=== PATIENT | male | born 1960 | race Caucasian/White ===

== ENCOUNTER 2022-03-07 09:51 | Outpatient (CLI) | payer BC, SELFPAY ==
[2022-03-07 13:51] LABS: Basophils Absolute Auto 0.06 K/uL (0.00-0.30); Basophils Percent Auto 0.7 % (0.0-3.0); Eosinophils Absolute Auto 0.12 K/uL (0.00-0.50); Eosinophils Percent Auto 1.4 % (0.0-7.0); Hematocrit 47.2 % (37.0-53.0); Hemoglobin* 15.8 gm/dL (13.5-17.5); Immature Granulocytes Abs Auto 0.02 K/uL (0.00-0.30); Lymphocytes Absolute Auto 2.71 K/uL (0.90-2.90); Lymphocytes Percent Auto 31.9 % (20-44); Mean Corpuscular HGB Conc 34 gm/dL (32-36); Mean Corpuscular Hemoglobin 31 pg (26-34); Mean Corpuscular Volume 93 fL (80-100); Monocytes Percent Auto 12.2 % (0.0-11.0); Neutrophils Absolute Auto 4.55 K/uL (1.7-7.0); Neutrophils Percent Auto 53.6 % (42.0-72.0); Platelet Count* 235 K/uL (140-440); Red Blood Count 5.08 m/uL (4.30-5.90)
[2022-03-07 14:00] LABS: Slide Review Reflex No
[2022-03-07 14:32] LABS: Chloride* 100 mmol/L (96-114); Potassium* 4.3 mmol/L (3.6-5.1); Sodium* 135 mmol/L (135-149)
[2022-03-07 14:34] LABS: Alanine Aminotransferase* 68 U/L (4-50); Carbon Dioxide* 29 mmol/L (20-32); Cholesterol* 158 mg/dL (90-199); Creatinine* 0.9 mg/dL (0.5-1.5); Estimated Glomerular Filt Rate 97 ml/min
[2022-03-07 14:35] LABS: Blood Urea Nitrogen* 18 mg/dL (7-30); Calcium* 9.5 mg/dL (8.4-10.6); Glucose* 113 mg/dL (60-115); HDL Cholesterol* 48 mg/dL (>=40); LDL Cholesterol Calculated 93 mg/dL (<100); Triglycerides* 87 mg/dL (40-149)
[2022-03-07 14:58] LABS: PSA Screen* 0.63 ng/mL (0.10-4.00)
== END 2022-03-07 09:52 | disposition home or self-care (01) ==
PROVIDERS: PCP Family Medicine; Visit Provider Family Medicine
DX: I10 Essential (primary) hypertension (principal); E78.5 Hyperlipidemia, unspecified; E87.6 Hypokalemia; G47.00 Insomnia, unspecified; Z12.5 Encounter for screening for malignant neoplasm of prostate
CPT/HCPCS: 80048; 80061; 84153; 84460; 85025

== ENCOUNTER 2023-03-11 10:03 | Outpatient (CLI) | payer BC, SELFPAY ==
--- OUTSIDE RECORDS SUMMARY | 2023-03-11 10:06 | XMS_ITS | Continuity of Care Document ---
Author Name Unknown Organization [facility] Address [address] [place] [address] Phone Care Team Providers Care Staff Radiographer Name Role Phone Giovany Anderson MD Unavailable Unavailable Allergies, Adverse Reactions, Alerts Substance Reaction Status Criticality No Known Allergies Active No Inform ation Medications Medication Instructions Dosage Effective Dates (start - stop) Status Comments prednisone 5 mg tablet see below for titration directions - Active Take 4 tablets daily PO X 3 days then take 3 tablets daily X 3 days then take 2 tablets daily X 3 days then take 1 tablet daily X 3 days ASPIRIN (unknown strength) Not Available - Active ATENOLOL (unknown strength) Not Available - Active NABUMETONE (unknown strength) Not Available - Active POTASSIUM CHLORIDE (unknown strength) Not Available - Active SIMVASTATIN (unknown strength) Not Available - Active ZOLPIDEM TARTRATE (unknown strength) Not Available - Active Procedures Procedure Date Office/Outpatient Visit,[facility], [facility] 2020 Advance Directives Directive Yes / No Effective Date File Name No Information Encounters Encounter Description Practice Location Reason(s) For Visit Diagnoses Date Provider Providers Copied on Encounter [facility], [address], [place], [id number], [place] tel:[phone] [facility] No Information Monica Phillips [facility], [address] [place] [address] [address], [place], [id number] , [place]. tel:[phone] Office/Outpat ient Visit, [facility], [address], [place], [id number], [place] tel:[phone] [facility] Spinal stenosis, lumbar region with neurogenic claudication 1 Jaden Carranza. [address], [facility] [place], [id number] , [place]. tel:[phone] Referring Provider: Charlie Hagan, [facility] [address] [place], [address]. tel:[phone] Family History Family Member Type Diagnosis Age At Onset No Information Payers Payer name Insurance type Covered green party ID Cristiano stacy(s) [facility] [id number] [facility] [id number] Social History Type Description Quantity Date Captured Comments Sex Male Smoking Status No Information Chief Complaint And Reason For Visit No Information Reason For Referral Reason For Referral No Information History Of Present Illness Encounter Date Complaint History Of Prese nt Illness No Information Functional Status Date Functional Assessmen t No Information Instructions Date Instruction Additional Infor mation No Information Assessments Type Assessment Date No Information Patient Care Teams Name Effective Dates (start - stop) Status Members No Information
== END 2023-03-11 10:04 | disposition home or self-care (01) ==
PROVIDERS: PCP Family Medicine; Visit Provider Family Medicine
DX: I10 Essential (primary) hypertension (principal); E78.2 Mixed hyperlipidemia; Z12.5 Encounter for screening for malignant neoplasm of prostate; T63.461A Toxic effect of venom of wasps, accidental (unintentional), initial encounter
CPT/HCPCS: 80048; 80061; 84153; 84460; 86003

== ENCOUNTER 2023-10-01 09:41 | Outpatient (CLI) | payer OTHER, SELFPAY ==
--- OUTSIDE RECORDS SUMMARY | 2023-10-01 09:43 | XMS_ITS | Continuity of Care Document ---
Author Name Unknown Organization [facility] Address [address] [place] [address] Phone Care Team Providers Care Tank House Operator Helper Name Role Phone Giovany Anderson MD Unavailable [...] take 1 tablet daily X 3 days ZOLPIDEM TARTRATE (unknown strength) Not Available - Active SIMVASTATIN (unknown strength) Not Available - Active POTASSIUM CHLORIDE (unknown strength) Not Available - Active NABUMETONE (unknown strength) Not Available - Active ATENOLOL (unknown strength) Not Available - Active ASPIRIN (unknown strength) Not Available - Active Procedures Procedure Date Office/Outpatient Visit,[facility], [facility] 2020 Advance Directives Directive Yes / No Effective Date File Name No Information Encounters Encounter Description Practice Location Reason(s) For Visit Diagnoses Date Provider Providers Copied on Encounter [facility], [address], [place], [id number], [place] tel:[phone] [facility] No Information Monica Phillips [facility], [address] [place] [address] [address], [place], [id number] , [place]. tel:[phone] Office/Outpat ient Visit, [facility], [address], [place], [id number], [place] tel:[phone] [facility] [place] Spinal stenosis, lumbar region with neurogenic claudication 1 Jaden Carranza. [address], [facility] [place], [id number] , [place]. tel:[phone] Referring Provider: Charlie Hagan, [facility] [address] [place], [address]. tel:[phone] Family History Family Member Type Diagnosis Age At Onset No Information Payers Payer name Insurance type Covered libertarian ID Cristiano stacy(s) [facility] [id number] [facility] [id number] Social History Type Description Quantity Date Captured [...]
== END 2023-10-01 09:42 | disposition home or self-care (01) ==
PROVIDERS: PCP Family Medicine; Visit Provider Family Medicine
DX: I10 Essential (primary) hypertension (principal); E78.2 Mixed hyperlipidemia; Z79.899 Other long term (current) drug therapy
CPT/HCPCS: 80048; 80076; 83690

== ENCOUNTER 2023-10-09 07:32 | Outpatient (CLI) | payer OTHER, SELFPAY ==
--- OUTSIDE RECORDS SUMMARY | 2023-10-09 07:34 | XMS_ITS | Continuity of Care Document ---
Author Name Unknown Organization [facility] Address [address] [place] [address] Phone Care Team Providers Care Recreation Aide Name Role Phone Giovany Anderson MD Unavailable [...] Available - Active Procedures Procedure Date Office/Outpatient Visit,[facility], [facility] 2020 Advance Directives Directive Yes / No Effective Date File Name No Information Encounters Encounter Description Practice Location Reason(s) For Visit Diagnoses Date Provider Providers Copied on Encounter [facility], [address], [place], [id number], [place] tel:[phone] [facility] No Information Monica Phillips [facility], [address] [place] [address] [address], [place], [id number] , [place]. tel:[phone] Office/Outpat ient Visit, [facility], [address], [place], [id number], [place] tel:[phone] [facility] Spinal stenosis, lumbar region with neurogenic claudication 1 Mumtazaryan Carranza. [address], [facility] [place], [id number] , [place]. tel:[phone] Referring Provider: Charlie Hagan, [facility] [address] [place], [address]. tel:[phone] Family History Family Member Type Diagnosis Age At Onset No Information Payers Payer name Insurance type Covered libertarian ID Authormarli stacy(s) [facility] [id number] [facility] [id number] Social History Type Description Quantity Date Captured Comments Sex Male Smoking Status No Information Chief Complaint And Reason For Visit No Information Reason For Referral Reason For Referral No Information Plan Of Treatment Date Type Action Status Appointment Robert Zaman BOOKED History Of Present Illness Encounter Date Complaint History Of Prese nt Illness No Information Functional Status Date Functional Assessmen t No Information Instructions Date Instruction Additional Infor mation No Information Assessments Type Assessment Date No Information Patient Care Teams Name Effective Dates (start - stop) Status Members No Information
--- NOTE | 2023-10-09 08:00 | CT_ITS ---
Patient: KERRY HANLEY Facility:?[facility] Patient ID:?[id number] Site Patient ID:?[id number]. Site :?[id number] Study:?CT-Abdomen/Pelvis w/131mL Isovue 370-10/09/2023 8:33:24 AM Ordering Physician:Rich Final Report: INDICATION: Abdominal discomfort, intermittent bloating and diarrhea TECHNIQUE: CT abdomen and pelvis acquired with 131 mL Isovue 370 IV contrast. COMPARISON: None. FINDINGS: Lower chest: Unremarkable. Liver: Low-density compatible with steatosis. Gallbladder and bile ducts: Unremarkable. No stones or inflammation. No biliary dilatation. Pancreas: Unremarkable. No mass or inflammation. Spleen: Unremarkable. Normal in size. No masses. Adrenal glands: Unremarkable. No nodules. Kidneys: Absent left kidney. Compensatory hypertrophy of the right kidney which measures 15.1 cm in length. GI tract: Unremarkable. Normal in caliber. No sign of mass or inflammation. Vasculature: Unremarkable. Mesenteric arteries are patent. Lymph nodes: No lymphadenopathy. Omentum/Peritoneum/Abdominal Wall: Unremarkable. No sign of mass or infiltration. No free air or significant free fluid. Pelvis: Small left seminal vesicle with some low-density change in calcification. Bones: Unremarkable for age. IMPRESSION: 1. 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 2. Hepatic steatosis. 3. No other significant findings. Please note that all CT scans at this facility use dose modulation, iterative reconstruction, and/or weight-based dosing when appropriate to reduce radiation dose to as low as reasonably achievable. Dictated by Phani Vargas MD @ 10/09/2023 1:17:50 PM Signed by:?Phani Vargas MD @10/09/2023 1:17:50 PM (Electronic Signature)
== END 2023-10-09 07:33 | disposition home or self-care (01) ==
LOC: CT 07:33
PROVIDERS: PCP Family Medicine; Visit Provider Family Medicine
DX: R10.9 Unspecified abdominal pain (principal); K76.0 Fatty (change of) liver, not elsewhere classified
CPT/HCPCS: 74177; Q9967

== ENCOUNTER 2024-03-05 07:59 | Outpatient (CLI) | payer OTHER, SELFPAY ==
--- OUTSIDE RECORDS SUMMARY | 2024-03-05 08:02 | XMS_ITS | Continuity of Care Document ---
Author Organization [facility] Address [address] [place] [address] Phone Care Team Providers Care Radar Operator Name Role Phone Giovany Anderson MD Unavailable Unavailable Allergies, Adverse Reactions, Alerts Substance Reaction Status Criticality No Known Allergies Active No Inform ation Medications Medication Instructions Dosage Effective Dates (start - stop) Status Comments ATENOLOL (unknown strength) Not Available - Active POTASSIUM CHLORIDE (unknown strength) Not Available - Active SIMVASTATIN (unknown strength) Not Available - Active Procedures Procedure Date Office/Outpatient Visit,[place] [facility] 2023 Office/Outpatient Visit,[facility], [facility] 2020 Advance Directives Directive Yes / No Effective Date File Name No Information Encounters Encounter Description Practice Location Reason(s) For Visit Diagnoses Date Provider Providers Copied on Encounter [facility], [address], [place], [id number] , [place] tel: [phone] [facility] No Information 4 Monica Phillips [facility], [address], [place], [id number] , [place]. tel: [phone] Office/Outpat ient Visit,[facility], [facility], [address], [place], [id number] , [place] tel: [phone] [facility] Spinal stenosis, lumbar region with neurogenic claudication 4 Jaden Carranza. [address] [place] [address] [address], [place], [place], [id number] , [place]. tel: [phone] Referring Provider: Charlie Hagan, [facility] [address] [place], [address]. tel:[phone] Office/Outpat ient Visit,[place], [facility], [address], [place], [place], [id number] , [place] tel: [phone] [facility] [place] Spinal stenosis, lumbar region with neurogenic claudication 1 Jaden Carranza. [address] [facility] [address], [place], [place], [id number] , [place]. tel: [phone] Referring Provider: Charlie Hagan [facility] [address] [place], [address]. tel:[phone] Family History Family Member Type Diagnosis Age At Onset No Information Payers Payer name Insurance type Covered democrat ID Authorronniea shaziajerald(s) Dale ESCOBAR Michael 2021 CI [id number] Social History Type Description Quantity Date Captured Comments Sex Male Smoking Status No Information Chief Complaint And Reason For Visit No Information Reason For Referral Reason For Referral No Information Plan Of Treatment Date Type Action Status Appointment Robert Zaman BOOKED Appointment Robert Zaman BOOKED Appointment Robert Zaman BOOKED History Of Present Illness Encounter Date Complaint History Of Prese nt Illness No Information Functional Status Date Functional Assessmen t No Information Instructions Date Instruction Additional Infor mation No Information Assessments Type Assessment Date No Information Patient Care Teams Name Effective Dates (start - stop) Status Members No Information
== END 2024-03-05 08:00 | disposition home or self-care (01) ==
PROVIDERS: PCP Family Medicine; Visit Provider Family Medicine
DX: E78.2 Mixed hyperlipidemia (principal); I10 Essential (primary) hypertension
CPT/HCPCS: 80048; 80061; 85025

== ENCOUNTER 2025-04-27 09:45 | Outpatient (CLI) | payer MEDICARE, SELFPAY | END 2025-04-27 09:46 | disposition home or self-care (01) | PROVIDERS: PCP Family Medicine; Visit Provider Family Medicine | DX: I10 Essential (primary) hypertension (principal); E78.2 Mixed hyperlipidemia; Z12.5 Encounter for screening for malignant neoplasm of prostate | CPT/HCPCS: 80048; 80061; 84460; G0103 ==